=== PATIENT | female | born 1975 | race Caucasian/White ===

== ENCOUNTER 2017-02-07 19:23 | Emergency (ER) | payer MEDICAID ==
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
== END 2017-02-07 20:32 | disposition home or self-care (01) ==
LOC: ER 19:23
DX: S86.311A Strain of muscle(s) and tendon(s) of peroneal muscle group at lower leg level, right leg, initial encounter (principal); X58.XXXA Exposure to other specified factors, initial encounter